=== PATIENT | female | born 1960 | race Caucasian/White ===

== ENCOUNTER 2023-12-01 13:45 | Outpatient (AMB) | payer OTHER, SELFPAY ==
--- NOTE | 2023-12-01 14:16 | A.OFFVIS_ITS ---
Vital Signs 12/01/23 14:34 Height 5 ft 1 in Weight 164 lb BMI 31.0 BP 116/72 Blood Pressure Location Rt brachial Position Sitting Respiration 16 Pulse 72 Pulse Source Pulse Oximeter Pulse Oximetry (%) 97 Oxygen Delivery Method Room Air Intake Visit Reasons: ENP: Alzheimer's dementia - Confirmed Intake Note: Pt presents to the office for new pt consultation for Alzheimer's, dementia. [employer] Required: No Allergies Penicillins Allergy (Mild, Verified 12/01/23 14:33) Unknown Medication List - Last Reconciled 12/01/23 by Mara Jerome MD albuterol sulfate 90 mcg/actuation 1 inh inhalation QID aspirin 81 mg PO DAILY cholecalciferol (vitamin D3) 50 mcg PO DAILY cyclobenzaprine 5 mg PO BEDTIME donepezil 10 mg PO BEDTIME escitalopram oxalate (Lexapro) 20 mg PO DAILY famotidine 40 mg PO DAILY ferrous sulfate 325 mg PO DAILY gabapentin 100 mg PO TID losartan 50 mg PO DAILY metoprolol succinate ER 50 mg PO DAILY nitroglycerin 0.4 mg sublingual Q5M PRN omeprazole 40 mg PO DAILY pravastatin 40 mg PO DAILY sucralfate 1 g PO BID tramadol 50 mg PO BID PRN trazodone 100 mg PO DAILY triamterene-hydrochlorothiazid 37.5-25 mg 1 tab PO DAILY HPI Comments Details: 63y/o female comes for further management of dementia. she has a strong family h/o dementia in 2 sisters and 2 brothers and her mother. she was diagnosed 10 years ago by her PCP and has been on donepezil 10mg since then . she is doing good. Her memory is oK. SHe denies any word finding difficulties, denies confusion. she has mild difficulty with short term recall. No depression or anxiey. [facility] Medical History (Updated 12/01/23 @ 15:03 by Mara Jerome MD) Memory loss Family history of first degree relative with dementia Cognitive disorder Gastric polyp Depression Obesity HTN (hypertension) Mixed hyperlipidemia Headache Vitamin D deficiency Vitamin deficiency Arthritis Memory change Carpal tunnel syndrome of right wrist Anemia Chest pain CKD (chronic kidney disease) Chronic GERD Diabetes mellitus Pulmonary nodule Prediabetes Mild intermittent asthma Bilateral sciatica Surgical History History of repair of hiatal hernia Social History Alcohol intake: never Patient Tobacco Use Status: Never used Tobacco Physical Exam Vital Signs: Last Vital Signs Pulse 72 12/01/23 14:34 Resp 16 12/01/23 14:34 BP 116/72 12/01/23 14:34 Pulse Ox 97 12/01/23 14:34 Oxygen Delivery Method Room Air 12/01/23 14:34 BMI result Body Mass Index 31.0 Const General: cooperative, healthy appearing and comfortable Nutritional Appearance: overweight Orientation/consciousness: patient oriented x3 Eyes Pupils: Equal, round and reactive pupils present Neuro Other: MOCA - see attached ( her education is 6th grade) General: patient oriented x3, gait normal, tone normal, moves all extremities and no focal motor deficits Cranial nerves: Yes Facial sensation intact/muscles of mastication intact, Yes Equal, round and reactive pupils present, Yes Bilaterally intact EOM present, Yes Nystagmus not present, Yes Normal facial strength present and Yes Midline tongue present Cognition (Neuro): normal cognition Gait exam (Neuro): Normal gait present Motor exam (neuro): 5/5 motor strength present throughout and Normal motor muscle tone present throughout Deep tendon reflexes (DTR's): Right triceps reflex intensity grade: 2+, Left triceps reflex intensity grade: 2+, Rt Biceps (C5, C6): 2+, Left biceps reflex intensity grade: 2+, Right brachioradialis reflex intensity grade: 2+, Left brachioradialis reflex intensity grade: 2+, Right patellar reflex intensity grade: 2+ and Left patellar reflex intensity grade: 2+ Coordination: [id number] test normal Assessment & Plan Assessment & Plan (1) Family history of first degree relative with dementia: Comment: she did well on her testing today MOCA was Code(s): Z81.8 - Family history of other mental and behavioral disorders Category: Medical (2) Memory loss: Code(s): R41.3 - Other amnesia Category: Medical Plan No evidence of dementia on todays exam I suggested to control risk factors like HTN Hyperlipidemia diabetes etc Discussed lifestyle modifications - diet and physical activity can taper Donepezil if she develops any side effects Consider referring her back to me if she develops increasing cognitive difficulties. Coding Level of Care Code New Pt Level 4 (39126) Diagnoses Family history of first degree relative with dementia Z81.8 Memory loss R41.3
[2023-12-01 14:34] VITALS: BP 116/72; PULSE 72; RESP 16; O2SAT 97; BMI 31.0
== END 2023-12-01 15:20 | disposition home or self-care (01) ==
PROVIDERS: PCP Internal Medicine; Visit Provider Psychiatry & Neurology Neurology
DX: Z81.8 Family history of other mental and behavioral disorders (principal); R41.3 Other amnesia
CPT/HCPCS: 99204

== ENCOUNTER → 2023-12-01 13:45 | Outpatient (BNVA) | payer OTHER, SELFPAY | PROVIDERS: PCP Internal Medicine; Visit Provider Psychiatry & Neurology Neurology | DX: R41.3 Other amnesia (principal); Z81.8 Family history of other mental and behavioral disorders | CPT/HCPCS: 99202 ==